=== PATIENT | female | born 1980 | race Two or more races ===

== ENCOUNTER 2023-06-13 09:56 | Emergency (ER) | payer OTHER ==
[~2023-06-13] VITALS: Ht 172.7 cm; Wt 139.7 kg
[2023-06-13] MEDS ORDERED: LOSARTAN-HCTZ1 EAC1 (10:15)
[2023-06-13 11:05] LABS: HEMATOCRIT 38.7 % (36.0-45.00); HEMOGLOBIN 13.4 g/dL (12.0-15.00); MEAN CELL VOLUME 82.1 fL (80.00-100.00); MEAN CORPUSCULAR HEMOGLOBIN 28.4 pg (27.00-32.0); MEAN CORPUSCULAR HGB CONC 34.6 g/dl (32.0-36.0); PLATELET COUNT 190 K/uL (150-450); RED BLOOD COUNT 4.72 M/uL (4.00-6.00); RED CELL DISTRIBUTION WIDTH 14.1 % (11.5-14.5)
[2023-06-13] MEDS ORDERED: ZYRTEC10 MG PO (11:40)
[2023-06-13] MEDS ORDERED: ALLERGY RELIE15.8 ML NASAL (11:40)
[2023-06-13] MEDS ORDERED: ZITHROMAX500 MG PO (11:40)
== END 2023-06-13 12:00 | disposition home or self-care (01) ==
LOC: ER 09:57
PROVIDERS: General Practice
DX: B34.9 Viral infection, unspecified (principal); Z20.822 Contact with and (suspected) exposure to COVID-19; Z88.8 Allergy status to other drugs, medicaments and biological substances

== ENCOUNTER 2023-06-20 12:16 | Emergency (ER) | payer OTHER ==
[~2023-06-20] VITALS: Ht 172.7 cm; Wt 141.1 kg
[~2023-06-20 12:16] MED LIST: ALLERGY RELIE15.8 ML NASAL; LOSARTAN-HCTZ1 EAC1; ZITHROMAX500 MG PO; ZYRTEC10 MG PO
[2023-06-20 14:42] LABS: URINE EPITHELIAL CELLS 83.1 uL (0.0-38.8); URINE RBC 863.7 uL (0.0-20.8)
[2023-06-20 14:45] LABS: HEMATOCRIT 33.4 % (36.0-45.00); HEMOGLOBIN 11.9 g/dL (12.0-15.00); MEAN CELL VOLUME 81.3 fL (80.00-100.00); MEAN CORPUSCULAR HEMOGLOBIN 28.9 pg (27.00-32.0); MEAN CORPUSCULAR HGB CONC 35.6 g/dl (32.0-36.0); PLATELET COUNT 176 K/uL (150-450); RED BLOOD COUNT 4.11 M/uL (4.00-6.00); RED CELL DISTRIBUTION WIDTH 14.6 % (11.5-14.5)
[2023-06-20 14:46] LABS: PH,URINE 6.5; URINE BLOOD LARGE; URINE GLUCOSE NEGATIVE (NEGATIVE); URINE LEUKOCYTE NEGATIVE; URINE NITRATE NEGATIVE; URINE PROTEIN 30 (NEGATIVE); URINE UROBILINOGEN 0.2 E.U./dl
[2023-06-20 14:54] LABS: URINE BILIRRUBIN MODERATE (NEGATIVE)
[2023-06-20 14:55] LABS: URINE APPEARANCE CLEAR; URINE COLOR YELLOW
[2023-06-20 15:07] LABS: ALBUMIN 2.8 gm/dL (3.4-5.0); BILIRUBIN TOTAL 0.87 mg/dL (0.3-1.2); CALCIUM 8.2 mg/dL (8.5-10.1); CREATININE SERUM 0.72 mg/dL (0.55-1.02); GFR 88.83; GLOBULINA 4.5 G/DL (2.4-3.5); TOTAL PROTEIN 7.3 gm/dL (6.4-8.2)
[2023-06-20 15:12] LABS: POTASSIUM 2.35 mEq/L (3.5-5.1)
[2023-06-20] MEDS ORDERED: PEPCID AC20 MG PO (15:40)
[2023-06-20] MEDS ORDERED: LEVSIN/SL0.125 MG SL (15:40)
== END 2023-06-20 16:06 | disposition home or self-care (01) ==
LOC: ER 12:17
PROVIDERS: General Practice
DX: B34.9 Viral infection, unspecified (principal); R50.9 Fever, unspecified; Z88.8 Allergy status to other drugs, medicaments and biological substances; Z20.822 Contact with and (suspected) exposure to COVID-19